=== PATIENT | male | born 1945 | race Caucasian/White ===

== ENCOUNTER 2018-03-31 06:14 | Day surgery (SDC) ==
[2018-03-31] MEDS: CYCLOGYL 2% OPTH OP PRN ×3 (06:35→06:45)
[2018-03-31] MEDS: BETADINE OPTH PREP OP PRN ×2 (06:35→07:08)
[2018-03-31] MEDS: TETRACAINE 0.5% UNIT-DOSE OP PRN ×3 (06:35→07:36)
[2018-03-31 06:44] VITALS: TEMP 97
[2018-03-31] MEDS ORDERED: AK-DILATE 10% OPTH SOL OP PRN (06:48)
[2018-03-31] MEDS ORDERED: LIDOCAINE 1% 20 ML MDV ID STA (06:48)
[2018-03-31] MEDS ORDERED: BRIMONIDINE TARTRATE 0.2% OPTH SOL OP PRN (06:48)
[2018-03-31] MEDS ORDERED: ZOFRAN 4 MG/2 ML IVP ONE (06:48)
[2018-03-31] MEDS: BSS WITH EPINEPHRINE OP ONE ×2 (07:22→07:37)
[2018-03-31] MEDS: DEX-MOXI-KETOR OPTH INJ 1/0.5/0.4 MG/ML IO ONE ×2 (07:22→07:37)
[2018-03-31] MEDS: LIDOCAINE 1%/PHENYLEPHRINE 1.5% BSS (SURGERY) INTRAOCULA ONE ×2 (07:23→07:37)
[2018-03-31] MEDS ORDERED: VERSED ONE (07:34)
[2018-03-31] MEDS ORDERED: SUBLIMAZE ONE (07:34)
[2018-03-31 11:21] VITALS: BP 128/67
== END 2018-03-31 08:15 | disposition home or self-care (01) ==
LOC: SURG 06:14
PROVIDERS: ATTEND Ophthalmology
DX: H25.813 Combined forms of age-related cataract, bilateral (principal)

== ENCOUNTER 2018-04-15 10:09 | Day surgery (SDC) ==
[2018-04-15] MEDS: CYCLOGYL 2% OPTH OP PRN ×3 (12:32→12:42)
[2018-04-15] MEDS: BETADINE OPTH PREP OP PRN ×2 (12:33→12:59)
[2018-04-15] MEDS: TETRACAINE 0.5% UNIT-DOSE OP PRN ×2 (12:33→12:59)
[2018-04-15] MEDS ORDERED: LIDOCAINE 1% 20 ML MDV ID STA (12:44)
[2018-04-15] MEDS ORDERED: ZOFRAN 4 MG/2 ML IVP ONE (12:44)
[2018-04-15] MEDS ORDERED: LIDOCAINE 1%/PHENYLEPHRINE 1.5% BSS (SURGERY) INTRAOCULA ONE (12:44)
[2018-04-15] MEDS ORDERED: BSS WITH EPINEPHRINE OP ONE (12:44)
[2018-04-15] MEDS ORDERED: DEX-MOXI-KETOR OPTH INJ 1/0.5/0.4 MG/ML IO ONE (12:44)
[2018-04-15] MEDS ORDERED: BRIMONIDINE TARTRATE 0.2% OPTH SOL OP PRN (12:44)
[2018-04-15] MEDS ORDERED: VERSED ONE (13:00)
[2018-04-15] MEDS ORDERED: SUBLIMAZE ONE (13:00)
[2018-04-15 17:20] VITALS: TEMP 97.2
[2018-04-17 13:29] VITALS: BP 127/67
== END 2018-04-15 14:00 | disposition home or self-care (01) ==
LOC: SURG 10:09
PROVIDERS: ATTEND Ophthalmology
DX: H25.811 Combined forms of age-related cataract, right eye (principal)